=== PATIENT | female | born 1970 | race African-American/Black ===

== ENCOUNTER → 2018-07-20 | Outpatient (CLI) | payer OTHER | LOC: MRI 07-19 11:07 | DX: M22.41 Chondromalacia patellae, right knee (principal); M25.461 Effusion, right knee; E88.89 Other specified metabolic disorders; M79.4 Hypertrophy of (infrapatellar) fat pad; V89.2XXA Person injured in unspecified motor-vehicle accident, traffic, initial encounter ==

== ENCOUNTER → 2020-10-09 | Outpatient (CLI) | payer OTHER ==
[~2020-10-09] MED LIST: CALCIUM CARBON500 MG PO; GEODON20 MG PO; GEODON40 MG PO; GEODON80 MG PO; I-PRIN200 MG PO; IRON325 M1 PO; MAG-OXIDE400 MG PO; MAGNESIUM CITR100 MG PO; NEURONTIN300 MG PO; PROPRANOLOL 4040 M1 PO; RESTORIL30 MG PO; RETIN-A20 GM TOP; TOPAMAX100 MG PO; VITAMIN C500 M1 PO; VITAMIN D310 MCG PO; XANAX1 MG PO
--- NOTE | ~2020-10-09 | EKG ---
[facility] [place] [address] ELECTROCARDIOGRAM REPORT Name: JOSE FRANCISCO DAVIS Room #: [facility]#: [id number] Admission: 10/09/20 Attend Phys: Jose Nicholas MD Discharge: Date of : 68 Report #: [id number] [facility] Test Date: 2020-10-09 Test Time: 13:18:36 Pat Name: JOSE FRANCISCO DAVIS Department: Room: Gender: F Interactive Media Designer: CHEKO : 1970 Requested By: Jose Nicholas Order Number: [id number] MD: Measurements Intervals Goehner Rate: 49 P: 76 TX: 172 QRS: 29 QRSD: 93 T: 61 QT: 465 QTc: 420 Interpretive Statements Sinus bradycardia Consider left atrial enlargement Borderline T wave abnormalities No previous ECG available for comparison [email or web address] By: 17 131 Nunu Eddy MD /EPI
[2020-10-09 14:03] LABS: HEMATOCRIT 38.3 % (37.0-47.0); HEMOGLOBIN 12.8 gm/dL (12.0-15.0); MCH 30.2 pg (26.0-34.0); MCHC 33.3 g/dL (28.0-37.0); MCV 90.7 fL (80.0-100.0); RBC 4.23 mil/uL (4.20-5.00); RDW 13.7 % (10.5-14.5); WBC 7.2 thou/uL (4.0-11.0)
[2020-10-09 14:05] LABS: URINE BILIRUBIN NEGATIVE (Negative); URINE BLOOD 2+ (Negative); URINE CLARITY CLEAR; URINE COLOR YELLOW; URINE GLUCOSE-RANDOM* NEGATIVE (Negative); URINE KETONES NEGATIVE (Negative); URINE LEUKOCYTES-REFLEX TRACE (Negative); URINE NITRITE-REFLEX NEGATIVE (Negative); URINE PROTEIN (DIPSTICK) NEGATIVE (Negative); URINE SPECIFIC GRAVITY 1.015 (1.005-1.035); URINE UROBILINOGEN 0.2 E.U./dl (0.2-1.0)
[2020-10-09 14:16] LABS: ALBUMIN 3.8 g/dL (3.4-5.0); CALCIUM 9.1 mg/dL (8.5-10.1); CREATININE 1.1 mg/dL (0.6-1.0); POTASSIUM 4.2 mmol/L (3.5-5.1)
[2020-10-09 14:21] LABS: AMORPHOUS PHOSPHATES Moderate /LPF (None Seen); BACTERIA-REFLEX 1-9 Few /HPF (None Seen); FINE GRANULAR CASTS 0-3 Few /LPF (None Seen); SQUAMOUS 0-3 Few /LPF (0-3); URINE RBC 0-2 Rare /HPF (0-2); URINE WBC-REFLEX 0-5 Rare /HPF (0-5)
== END ==
LOC: LAB 11:24
PROVIDERS: ATTEND Orthopaedic Surgery
DX: Z01.812 Encounter for preprocedural laboratory examination (principal); Z20.822 Contact with and (suspected) exposure to COVID-19; R00.0 Tachycardia, unspecified

== ENCOUNTER 2020-10-14 10:46 | Inpatient (IN) | payer OTHER ==
[~2020-10-14] VITALS: Ht 172.7 cm; Wt 64.4 kg
[~2020-10-14 10:46] MED LIST changes: -MAGNESIUM CITR100 MG PO; +MAGNESIUM400 MG PO
[2020-10-14 11:20] VITALS: BP 123/80
[2020-10-14 18:59] VITALS: BP 112/63
--- NOTE | 2020-10-15 02:05 | NUR ---
ASSUMED PT CARE AT 1900.PT ALERT,CALM AND PEASANT.DRSG TO HER R KNEE C/D/I.POLAR PACK IN PLACE ON HER KNEE.PT C/O PAIN,MANAGED WITH MED.PT VOIDING VIA BSC WITH ASSIST X1/GB.PT ABLE TO MAKE HER NEEDS KNOWN.ADMISSION COMPLETED. CALL LIGHT WITHIN REACH.
[2020-10-15 04:50] VITALS: BP 103/65
[2020-10-15 06:09] LABS: HEMATOCRIT 30.9 % (37.0-47.0); HEMOGLOBIN 10.4 gm/dL (12.0-15.0); MCH 30.3 pg (26.0-34.0); MCHC 33.8 g/dL (28.0-37.0); MCV 89.9 fL (80.0-100.0); RBC 3.44 mil/uL (4.20-5.00); RDW 13.6 % (10.5-14.5); WBC 12.7 thou/uL (4.0-11.0)
[2020-10-15 07:30] VITALS: BP 102/66
--- NOTE | 2020-10-15 08:48 | NUR ---
ASSESSMENT: CM REVIEWED CHART AND SPOKE WITH PATIENT. PT IS ALERT AND ORIENTED X4. PT IS S/P TOTAL KNEE REPLACEMENT. PT REPORTS SHE LIVES IN A HOUSE BY HERSELF BUT HER SON IS GOING TO BE STAYING WITH HER A FEW DAYS TO HELP HER IF NEEDED. PT REPORTS 2 STEPS TO ENTER THE HOME WITH NO HANDRAILS AND NO STEPS SHE HAS TO USE ONCE INSIDE. PT REPORTS SHE HAS A WALKER AT HOME. PT REPORTS SHE HAS OUTPATIENT THERAPY ALREADY ARRANGED AT [facility] IN [place], [place] TO BEGIN TOMORROW. PT REPORTS SHE HAD HH IN THE PAST BUT UNSURE WHAT AGENCY IT WAS YEARS AGO. PT STATES SHE HAS ALSO BEEN TO THE ACUTE REHAB AT [facility] [place] IN THE PAST ABOUT 4 YEARS AGO. PT IS TO WORK WITH PHYSICAL THERAPY TODAY AND DOES NOT ANTICIPATE HAVING ANY NEEDS FROM CM.
--- NOTE | 2020-10-15 10:58 | NUR ---
Received awake on bed. Due medications given as prescribed, able to swallow meds w/o difficulty. On room air. Vital signs stable. Legally blind bilaterally- Assisted in ADLs. On MS, not on telemetry; no complains and signs of chest pain, crushinng sensation and heaviness. Continent of bowel and bladder, able to use bedside commode and go to the toilet- Falls bundle in place; using gait belt and walker. With L portacath- IV nurse re-informed this AM; With D51/2NS at 100cc/hr, infusing well. S/P TKR 10/14- MACARIO dressing in place; RIGO hose, polar pack, and SCDs in place; able to feel tactile stimulation and able to wiggle toes; no bleeding and drainage noted. Complained of pain, due PRN pain meds given as prescribed. On regular diet- tolerating well; no nausea, no vomiting and no abdominal pain noted. Pt seen by ortho CUSTOMER CARE REPRESENTATIVE this morning, possible discharge this PM once cleared by PT- CM informed re: this- with own walker at bedside. To continue monitoring patient.
--- NOTE | 2020-10-15 11:10 | O ---
[facility] [place] [address] OPERATIVE REPORT Name: JOSE FRANCISCO DAVIS Room #: 441-P [facility] M.RArnaud#: [id number] Admission: 10/14/20 Attend Phys: Jose Nicholas MD Discharge: Date of : 68 Report #: [id number] THIS REPORT FOR: cc: Cristofer Sparrow MD, Andrea A. MD Abraham,Jose Santamaria MD ~ DATE OF SERVICE: 10/14/2020 PREOPERATIVE DIAGNOSIS: Right knee osteoarthritis. POSTOPERATIVE DIAGNOSIS: Right knee osteoarthritis. PROCEDURE: Right total knee arthroplasty using Navio robotic marketing assistant. SURGEON: Jsoe Nicholas MD ESCORT SERVICE ATTENDANT: Dasha Simmons PA-C INDICATIONS FOR ESCORT SERVICE ATTENDANT: Throughout the case, extensive retraction and manipulation of the knee was required. This was afforded to me by my marketing assistant. ANESTHESIA: LMA with an adductor canal block. IMPLANTS: Landeros and Nephew size 5 Journey II BCS Oxinium femur, size 3 tibia, size 35 patella and a 9 polyethylene. TOURNIQUET TIME: 53 minutes. ESTIMATED BLOOD LOSS: 25 mL. COMPLICATIONS: None. SPECIMENS: None. CONDITION UPON LEAVING THE OPERATING ROOM: Stable. INDICATIONS FOR PROCEDURE: The patient is a 50-year-old female with right knee osteoarthritis, particularly patellofemoral osteoarthritis. She has undergone several knee scopes for this and has failed conservative measures for this. She has had an anterior as well as medial and lateral pain and after discussion with her, she elected for right total knee arthroplasty. DESCRIPTION OF PROCEDURE: Risks, benefits, alternatives, and complications were discussed in detail with the patient including but not limited to risk of anesthesia, risk of damage to nerves, arteries, blood vessels, risk for [facility] [address] [place] [address] OPERATIVE REPORT Name: JOSE FRANCISCO DAVIS Room #: 441-P [facility] Joaquin Bullard#: [id number] Admission: 10/14/20 Attend Phys: Jose Nicholas MD Discharge: Date of : 68 Report #: [id number] infection, bleeding, risk for continued knee pain, need for reoperation. Informed consent was obtained from the patient. The right knee was appropriately marked in the preoperative holding area. IV Ancef was given for preoperative antibiotics. She was brought to the operating room and placed in the supine position on the operating room table. LMA anesthesia was induced without complication. Tourniquet was placed on the right thigh. Right lower extremity was prepped and draped in normal sterile fashion. Timeout was performed properly identifying the patient and procedure as well as the instrumentation and implants. All in the operating room were in agreement. Right lower extremity was exsanguinated, tourniquet was inflated. Tourniquet time was 53 minutes. Standard midline approach to knee was made with 10 blade through the skin. Dissection was taken down sharply to the fascia and deep flaps were developed medially and laterally. Fresh 10 blade was used to make a medial parapatellar arthrotomy and the knee was inspected. There was severe patellofemoral compartment osteoarthritis with mild medial and lateral compartment osteoarthritis. ACL and PCL were removed sharply. Reference pins were placed in the femur and the tibia. The knee was digitally mapped using the Undertone robotic system. Intraoperative plan was made and we sized the size 5 femur and size 3 tibia and a 10 spacer. After acceptance of the intraoperative plan, the distal femoral cut was made with a Navio bur. Distal femoral cutting block was pinned in place and chamfer cuts were made. Attention was turned to the tibia. Remainder of the menisci removed with Bovie cautery. Tibial resection guide was pinned in place using the Navio for placement and tibial resection was made. Flexion and extension gaps were then checked and found to have good balance in flexion and extension both medially and laterally. Tibia was sized, found to be a size 3. Size 3 tibial trial was placed, pinned and punched. A size 5 femoral trial was placed and box cut was made. This was then trialed with a size 9 polyethylene. Size 9 polyethylene demonstrated 1-1.5 mm of laxity medially and laterally throughout range of motion of the knee. A 9 mm of bone was resected from the posterior surface of the patella and a size 35 patellar trial button was placed. Knee was taken through range of motion, found to be stable, found to have good patellar tracking. Trial components were removed. Bony ends were thoroughly irrigated with normal saline. A final size 3 tibia, size 5 Journey II BCS Oxinium femur and a size 35 patella were cemented in place using standard cementation techniques. While the cement cured, a periarticular injection consisting of morphine, ropivacaine, epinephrine and Toradol was placed around the knee joint capsule. After the cement cured, tourniquet was deflated. Hemostasis was obtained with Bovie cautery. A gram of vancomycin was placed deep in the joint. The fascia was closed with 0 Vicryl, skin was closed with 2-0 Vicryl, 3-0 Monocryl, Dermabond and a MACARIO dressing was [address] [address] OPERATIVE REPORT Name: JOSE FRANCISCO DAVIS Room #: 441-P [facility] Joaquin Bullard#: [id number] Admission: 10/14/20 Attend Phys: Jose Nicholas MD Discharge: Date of : 68 Report #: [id number] applied. The patient tolerated this procedure well and went to recovery room under care of anesthesia postoperatively. <ELECTRONICALLY SIGNED> By: Jose Nicholas MD 10/15/20 1110 [id number] Jose Nicholas MD /nt
[2020-10-15 16:31] VITALS: BP 106/59
[2020-10-15 19:40] VITALS: BP 121/70
[2020-10-15 22:01] VITALS: BP 120/75
[2020-10-16 03:10] VITALS: BP 120/75
--- NOTE | 2020-10-16 05:16 | NUR ---
PT AOX4. PT REPORTS 7/10 PAIN IN RIGHT KNEE. PT RECEIVING SCHEDULED PO MORPHINE ER BID, PRN IV MORPHINE Q1HR WITH PRN PO APAP Q3HR AVAILABLE. PT DENIES SOB WHILE ON ROOM AIR. PT TOLERATING PO INTAKE OF FLUIDS AND REGULAR DIET WITHOUT ISSUE. PT WITHOUT NAUSEA OR EMESIS. PT AMBULATING WITH WALKER AND X1 ASSIST TO BEDSIDE COMMODE, RESTING IN BED OTHERWISE. FREQUENT REPOSITIONING ENCOURAGED WHILE IN BED, PT NOTED TO SHIFT INDEPENDENTLY WHILE IN BED. PT NOTED TO HAVE WEAKNESS, REPORTS NUMBNESS IN RIGHT KNEE. CAPILLARY REFILL LESS THAN 3SEC IN ALL EXTREMITIES. PT ENCOURAGED TO NOTIFY STAFF FOR ALL NEEDS, CALL LIGHT WITHIN REACH, BED ALARM ON, BED LOCKED IN LOWEST POSITION, FREQUENT MONITORING WILL CONTINUE.
[2020-10-16 07:50] VITALS: BP 134/82
--- NOTE | 2020-10-16 15:38 | NUR ---
Assumed care of pt at 0700. Pt a&ox4. Sleepy this am. Pt worked with physical therapy twice today. Possible d/c over the weekend. Pain controlled with prn pain meds. Dressing c/d/i. Call light within reach. Fall precautions in place. Will continue to monitor.
--- NOTE | 2020-10-16 15:44 | NUR ---
ON-GOING ASSESSMENT: CM REVIEWED CHART AND SPOKE WITH PATIENT. PT WAS SLOW TO PROGRESS WITH THERAPY AND MAY NEED TO STAY OVERNIGHT. CM DISCUSSED POSSIBLE NEED FOR HOME HEALTH OR SNF IF SHE DOESNT PROGRESS. PT REPORTS SHE IS HOPING TO GO HOME AND HER SON HELP HER OUT AT HOME. PT IS OPEN TO HH IF NEEDED AND HAS NO PRFERENCE OF AGENCY. CM FAXED REFERRAL TO [facility]. IF PT IS NEEDING HOME HEALTH AT DISCHARGE CONTACT [facility] TO NOTIFY THEM [phone] AND FAX DISCHARGE ORDERS/SUMMARY TO [facility] FAX [phone].
[2020-10-16 16:15] VITALS: BP 124/75
--- NOTE | 2020-10-17 04:33 | NUR ---
patient alert and oriented x4 assessment completed @ 2000 no c/o pain or discomfort. patient slept thru noc in bed with eyes closes respiration even non labored.@ 0300 Pt. up to and from bathroom with 1 assist gait unsteady tolerated well. c/o pain . patient given prn tramadol . will continue to monitor.
[2020-10-17 09:27] VITALS: BP 117/64
== END 2020-10-17 16:44 | disposition home health service (06) | DRG 470 ==
LOC: OR 10:46 → TBA 10:46 → OR 11:25 → EDSTATUS 15:27 → 4S 16:00 → OR 16:01 → 4S 10-17 16:44
PROVIDERS: ADMIT Orthopaedic Surgery; ATTEND Orthopaedic Surgery
DX: M17.11 Unilateral primary osteoarthritis, right knee (principal); Z88.6 Allergy status to analgesic agent; Z88.1 Allergy status to other antibiotic agents
CPT/HCPCS: 10102; 50010; 50101; 50415; 50954; 51130; 51225; 51320; 52001; 52282; 53000; 53078; 53365; 54118; 56527; 56528; 57095; 57103; 57110; 57127; 57180; 62110; 62900; 70005